=== PATIENT | female | born 1975 | race Caucasian/White ===

== ENCOUNTER 2021-03-23 11:14 | Outpatient (CLI) | payer MEDICAID, SELFPAY ==
--- NOTE | 2021-03-23 11:22 | XR_ITS ---
WS: [id number] Right wrist, 3 views, 03/23/2021 Clinical Data: M25.531 - Pain in right wrist Comparison: None. Findings: No fractures or dislocations are seen. The carpal bones are intact. There is no soft tissue swelling. The distal radius and ulna are not remarkable. XR/XR wrist RT min 3V* [id number] Impression: Negative right wrist.
== END 2021-03-23 11:15 | disposition home or self-care (01) ==
PROVIDERS: PCP Nurse Practitioner; Visit Provider Nurse Practitioner Family
DX: M25.531 Pain in right wrist (principal)
CPT/HCPCS: 73110

== ENCOUNTER → 2022-01-09 09:57 | Outpatient (BNVA) | payer MEDICAID, SELFPAY | PROVIDERS: PCP Nurse Practitioner; Visit Provider Nurse Practitioner Family | DX: R30.0 Dysuria (principal) | CPT/HCPCS: 81000; 87086 ==

== ENCOUNTER → 2022-05-16 08:40 | Outpatient (BNVA) | payer MEDICAID, SELFPAY | PROVIDERS: PCP Nurse Practitioner; Visit Provider Nurse Practitioner Family | DX: R30.0 Dysuria (principal); N39.0 Urinary tract infection, site not specified | CPT/HCPCS: 81000 ==

== ENCOUNTER → 2022-07-31 11:18 | Outpatient (BNVA) | payer MEDICAID, SELFPAY | PROVIDERS: PCP Nurse Practitioner; Visit Provider Family Medicine | DX: R52 Pain, unspecified (principal); R05.9 Cough, unspecified | CPT/HCPCS: 87071; 87400; 87880 ==

== ENCOUNTER → 2022-10-04 13:44 | Outpatient (BNVA) | payer MEDICAID, SELFPAY | PROVIDERS: PCP Nurse Practitioner; Visit Provider Nurse Practitioner Family | DX: R39.9 Unspecified symptoms and signs involving the genitourinary system (principal); R30.0 Dysuria; M54.50 Low back pain, unspecified | CPT/HCPCS: 81000 ==

== ENCOUNTER → 2023-07-08 10:10 | Outpatient (BNVA) | payer MEDICAID, SELFPAY | PROVIDERS: PCP Nurse Practitioner; Visit Provider Nurse Practitioner Family | DX: E03.9 Hypothyroidism, unspecified (principal) | CPT/HCPCS: 84443 ==

== ENCOUNTER → 2023-07-25 14:51 | Outpatient (BNVA) | payer MEDICAID, SELFPAY | PROVIDERS: PCP Nurse Practitioner; Visit Provider Nurse Practitioner Family | DX: R50.9 Fever, unspecified (principal); U07.1 COVID-19 | CPT/HCPCS: 87400; 87426 ==

== ENCOUNTER → 2023-09-30 09:27 | Outpatient (BNVA) | payer MEDICAID, SELFPAY | PROVIDERS: PCP Nurse Practitioner; Visit Provider Nurse Practitioner Family | DX: R50.9 Fever, unspecified (principal); J10.1 Influenza due to other identified influenza virus with other respiratory manifestations | CPT/HCPCS: 87400; 87426 ==

== ENCOUNTER → 2023-12-01 10:09 | Outpatient (BNVA) | payer MEDICAID, SELFPAY | PROVIDERS: PCP Nurse Practitioner; Visit Provider Nurse Practitioner Family | DX: J02.9 Acute pharyngitis, unspecified (principal) | CPT/HCPCS: 87880 ==

== ENCOUNTER → 2024-04-05 10:24 | Outpatient (BNVA) | payer MEDICAID, SELFPAY | PROVIDERS: PCP Nurse Practitioner; Visit Provider Nurse Practitioner Family | DX: R50.9 Fever, unspecified (principal); J06.9 Acute upper respiratory infection, unspecified | CPT/HCPCS: 87426 ==

== ENCOUNTER → 2024-08-27 11:15 | Outpatient (BNVA) | payer BC, SELFPAY | PROVIDERS: PCP Nurse Practitioner; Visit Provider Clinical Nurse Specialist Adult Health | DX: R39.9 Unspecified symptoms and signs involving the genitourinary system; R81 Glycosuria; N39.0 Urinary tract infection, site not specified | CPT/HCPCS: 81000; 87077; 87086; 87184 ==

== ENCOUNTER → 2025-01-11 13:42 | Outpatient (BNVA) | payer BC, SELFPAY | PROVIDERS: PCP Nurse Practitioner; Visit Provider Nurse Practitioner Family | DX: M79.641 Pain in right hand (principal) | CPT/HCPCS: 73130 ==

== ENCOUNTER 2025-06-27 08:35 | Emergency (ER) | payer BC, MEDICAID, SELFPAY ==
[2025-06-27 09:27] VITALS: BP 146/78; PULSE 109; RESP 18; TEMP 37.1; O2SAT 97; BMI 33.7
--- NOTE | 2025-06-27 09:41 | ED_ITS ---
HPI - Skin/Abscess/Foreign Bdy General: Chief complaint: Skin/Abscess/Foreign Body Stated complaint: pain on buttom Time Seen by Provider: 06/27/25 09:18 Source: patient Mode of arrival: ambulatory Limitations: no limitations History of Present Illness: Patient is a 50-year-old female presenting to the emergency department complaining of pain and swelling to her left buttock region. States she noticed it 2 days ago, she has pain with sitting and has been applying a topical cream on it but states that pain has gotten worse. No fevers, nausea/vomiting, or any other systemic symptoms reported. No direct trauma to the area. She states that it is mildly warm to the touch. Overall nontoxic-appearing at this time, patient states she is just concerned of a staph infection. No urinary symptoms, she states that it does not involve the genitalia. Onset (ago): day(s) (2) Location: buttocks Severity: mild Quality: burning Pain Consistency: constant Exacerbating factors: other (Sitting) Context: none Associated symptoms: Deny chills, fever(s), nausea or vomiting Treatments prior to arrival: OTC topical medication Related Data Previous Rx's ?Medication ?Instructions ?Recorded ibuprofen 800 mg tablet 800 mg PO BID PRN pain 14 da ys #28 03/22/21 tabs levothyroxine 125 mcg capsule 125 mcg PO DAILY #30 cap s 07/15/24 prednisone 10 mg tablets in a dose See Rx Instructions PO PER PKG DIR 01/11/25 pack #21 ea nitrofurantoin 100 mg PO Q12H 7 days #14 ca ps 02/23/25 monohydrate/macrocrystals 100 mg capsule (Macrobid) azithromycin 250 mg tablet See Rx Instructions PO .COM PLEX #6 06/20/25 tabs promethazine-DM 6.25 mg-15 mg/5 mL 5 - 10 ml PO Q6H MT N cough #240 mL 06/23/25 oral syrup amoxicillin 875 mg-potassium 1 tab PO BID 7 days #14 t abs 06/27/25 clavulanate 125 mg tablet Allergies Allergy/AdvReac Type Severity Reaction Status Date / Time tramadol Allergy ADR-Nausea Verified 06/20/25 15:13 Review of Systems General: Reports: 10 or more systems reviewed and unremarkable except in HPI and below Const: Denies: fever(s) or chills Card: Denies: chest pain Resp: Denies: dyspnea GI: Denies: abdominal pain, nausea, vomiting or diarrhea Musc: Denies: extremity pain or joint pain Skin/Breast: Reports: skin pain, skin tenderness and new lesions; Denies: rash Neuro: Denies: headache(s) PFSH ED PFSH: Surgical History Hx of cholecystectomy Hx of appendectomy Family History Mother Hypertension Social History Smoking and tobacco/nicotine status: never used tobacco/nicotine Second hand smoke exposure: No Alcohol intake: never Substance/Drug Use: never Adopted: No Caregiver/support person: No Lives independently: Yes Household members: spouse Housing: House Marital status: service: No Current occupational status: employed Female Reproductive History: Para: 3 Physical Exam Const: COMMON NORMALS: no acute distress, average body habitus, patient oriented x3, no limitations, healthy appearing, alert and well nourished OTHER: nontoxic HENMT: COMMON NORMALS: normocephalic and atraumatic HEAD & SCALP: normocephalic and atraumatic Neck/C-Spine: COMMON NORMALS: full ROM, no lymphadenopathy, supple and no meningeal signs Resp: COMMON NORMALS: normal respiratory effort, No use of accessory muscles and clear to auscultation bilaterally AUSCULTATION: clear to auscultation bilaterally Cardio: COMMON NORMALS: regular rate and regular rhythm RATE: regular rate RHYTHM: regular rhythm Extremity: COMMON NORMALS: full ROM and capillary refill normal Neuro: COMMON NORMALS: patient oriented x3 SENSORIUM/ORIENTATION: Yes alert MENINGEAL SIGNS: Yes no meningeal signs Skin: COMMON NORMALS: turgor normal NARRATIVE SKIN EXAM: To the left buttock region, there is area of moderate induration and erythema, no fluctuance. Does not involve the genitalia. Mildly tender to palpation. GENERAL SKIN EXAM: turgor normal Course Vital Signs: Vital signs: Vital Signs Temperature 98.7 F 06/27/25 09:27 Pulse Rate 109 H 06/27/25 09:27 Respiratory Rate 18 06/27/25 09:27 Blood Pressure 146/78 10/20/25 09:27 Pulse Oximetry 97 06/27/25 09:27 MDM - Skin/Abscess/Foreign Bdy Medicial Decision Making Patient presenting with clinical signs and symptoms of cellulitis, no concern for abscess at this time with lack of fluctuance and onset of symptoms. She has no systemic symptoms to report and clinically is nontoxic-appearing, so we will treat with Augmentin and she is informed to return with any fevers, nausea/vomiting, worsening of pain or expanding redness, or any other concerns that she has. She agrees with this plan. No radiology studies performed this visit Discharge Plan Discharge Patient Disposition: Home Clinical Impression: Cellulitis Condition: Stable Prescriptions: New amoxicillin-pot clavulanate 875-125 mg tablet 1 tab PO BID 7 Days Qty: 14 0RF No Action ibuprofen 800 mg tablet 800 mg PO BID PRN (Reason: pain) 14 Days Qty: 28 0RF prednisone 10 mg tablets,dose pack See Rx Instructions PO PER PKG DIR Qty: 21 0RF Rx Instructions: PO PER PKG DIR azithromycin 250 mg tablet See Rx Instructions PO .COMPLEX Qty: 6 0RF Rx Instructions: For 250 mg dose pack: take 500 mg today (day 1), then 250 mg for 4 days (days 2-5) PO levothyroxine 125 mcg capsule 125 mcg PO DAILY Qty: 30 2RF nitrofurantoin monohyd/m-cryst [Macrobid] 100 mg capsule 100 mg PO Q12H 7 Days Qty: 14 0RF Rx Instructions: must administer with a meal/food promethazine-DM 6.25-15 mg/5 mL syrup 5 - 10 ml PO Q6H PRN (Reason: cough) Qty: 240 0RF Discharge Orders: Discharge ED (Routine); Ordered 06/27/25 Ordered By: Brannon Beltran Referrals: Kimber Traore, ACCOUNTING SYSTEMS MANAGER-C [Primary Care Provider, Family Practice] Patient Instructions: Patient Portal & Serina Instructions Activity Restrictions/Additional Instructions: Cellulitis Discharge Instructions You have been diagnosed with cellulitis, a skin infection, on your left buttock. You will be taking Augmentin (amoxicillin-clavulanate) twice daily for 7 days to treat this infection. How to take your medication: - Take Augmentin exactly as prescribed: one dose every 12 hours (twice daily) for 7 days. - Take each dose with a meal or snack to help prevent stomach upset. - Do not skip doses, and finish the entire course even if you start to feel better. Stopping early can make the infection harder to treat in the future. What to expect: - You should start to see improvement in redness, swelling, pain, or warmth within 24-48 hours of starting antibiotics. - Some redness or swelling may persist even after the infection is gone; this is normal. - If you do not see improvement, or if symptoms worsen after 2-3 days, contact your healthcare provider. Possible side effects: - Diarrhea is common and usually mild. If diarrhea is severe or lasts more than 2-3 days, call your healthcare provider. - Allergic reactions can happen. Stop taking Augmentin and seek medical attention immediately if you develop a rash, swelling, trouble breathing, or mouth sores. - Other side effects may include nausea or stomach upset. Other instructions: - Keep the affected area clean and dry. - Rest and elevate the area if possible to reduce swelling. - Treat any underlying conditions that may have contributed to the infection, such as skin breaks or swelling. - If you develop fever, chills, confusion, or the area becomes rapidly worse, seek medical attention immediately. Follow-up: - Schedule a follow-up appointment or contact your provider if you have any concerns or if symptoms do not improve as expected. Storage: - If you are using the liquid form of Augmentin, keep it refrigerated and shake well before use. If you have any questions about your medication or your condition, please contact your healthcare provider. Print Language: Slovenian Coding Level of Care Code ED Director Of Catering Sales for Rose Torres
[2025-06-27 09:42] VITALS: BP 134/80; PULSE 97; RESP 18; O2SAT 98
== END 2025-06-27 09:49 | disposition home or self-care (01) ==
PROVIDERS: Emergency Provider Physician Assistant; PCP Nurse Practitioner
DX: L03.317 Cellulitis of buttock (principal)
CPT/HCPCS: 99283